=== PATIENT | female | born 1980 ===

== ENCOUNTER 2019-01-30 16:39 | Emergency (ER) | payer BC ==
[~2019-01-30] VITALS: Ht 170.2 cm; Wt 83.5 kg
[2019-01-30 17:22] VITALS: BP 140/46; Ht 170.2 cm; Wt 83.5 kg
== END 2019-01-30 19:09 | disposition left against medical advice (07) ==
LOC: ED 16:39
DX: Z53.21 Procedure and treatment not carried out due to patient leaving prior to being seen by health care provider (principal)